=== PATIENT | female | born 2000 | race Hispanic/Latino ===

== ENCOUNTER → 2023-03-22 10:40 | Outpatient (REF) | payer OTHER, SELFPAY | LOC: HWRAD 10:40 | PROVIDERS: ATTENDING PHYSICIAN Nurse Practitioner Acute Care | DX: J84.10 Pulmonary fibrosis, unspecified (principal) | CPT/HCPCS: 71250 ==

== ENCOUNTER 2023-04-20 23:55 | Emergency (ER) | payer MEDICAID, SELFPAY ==
[2023-04-21 00:14] VITALS: BP 100/55
--- NOTE | 2023-04-21 01:23 | ED.GENMED ---
History of Present Illness
General
Chief Complaint: Problems
Source: patient
Exam Limitations: none
Time Seen by Provider: 04/21/23 01:09
Travel History
Have you had any contact with someone who has COVID-19?: No
Do you have any symptoms of coronavirus? Fever > 100 degrees, chills, cough, shortness of breath, sore throat, loss of taste or smell, muscle aches, or headache?: No
History of Present Illness
History of Present Illness:
See MDM
Past History
Past History
ED Past Medical History: None; Negative Asthma, HTN, Hypercholesterolemia or NIDDM
ED Past Surgical History: Cholecystectomy
Social History
Tobacco: Non-smoker
Alcohol: None
Personal: Single
Living: with family
Phy Exam
Physical Exam
Physical Exam:
See MDM
Course
Orders/Labs/Results
Orders:
Orders
04/21/23 01:22
US W Transvaginal Urgent
Reason For Exam: , abd pain
04/21/23 01:31
Complete Blood Count/With Diff Urgent
Comprehensive Metabolic Panel Urgent
HCG, Beta Quantitative [Beta HCG Quantitative] Urgent
Is this a screen?: No
Abnormal Lab Results
04/21/23
01:31
WBC 12.4 H 10^3/uL
(4.8-10.8)
RBC 3.90 L 10^6/uL
(4.20-5.40)
Hct 34.5 L %
(37.0-47.0)
MPV 10.8 H fL
(7.4-10.4)
Absolute Neuts (auto) 7.7 H 10^3/uL
(1.4-6.5)
Absolute Monos (auto) 1.5 H 10^3/uL
(0.1-0.6)
Monocytes % 12.2 H %
(1.7-9.3)
Creatinine 0.5 L mg/dL
(0.6-1.0)
04/21/23 01:31
04/21/23 01:31
Vital Signs
Initial and Last Documented VS:
Initial Vital Signs
Temp Pulse Resp BP Pulse Ox
98.5 F 71 16 100/55 100
04/21/23 00:14 04/21/23 00:14 04/21/23 00:14 04/21/23 00:14 04/21/23 00:14
Last Documented Vital Signs
Temp Pulse Resp BP Pulse Ox
98.5 F 74 16 115/62 99
04/21/23 00:14 04/21/23 02:43 04/21/23 02:43 04/21/23 02:43 04/21/23 02:43
Information
Weeks gestation: Weeks: ()
Location: Location: ([facility])
MDM/Problems Addressed
Differential Diagnosis Includes:
HPI and MDM Narrative:
22-year-old female presenting with abdominal cramping. Patient believes she is 8 weeks by last menstrual period. She has her first ultrasound appointment on Sunday. She denies any vaginal bleeding. She is G3, P1 and has had a prior
miscarriage similar to this presentation. However, she has not noticed any bleeding this time
Prior records indicate that her blood type is A+
Physical exam
General: Well appearing and non-toxic
HEENT: protecting airway
Neck: appears supple
CV: No evidence of cyanosis
Resp: No accessory muscle use
Abd: Non-distended. Soft and nontender
Extremities: No deformities
Neuro: alert
Psych: Normal affect
Skin: Intact
Problems Addressed including Acute and Chronic Conditions affecting care:
1. abdominal pain
Acuity: acute
Prognosis: stable
Details: Bedside ultrasound shows possible gestational sac measuring 5 weeks 4 days. Will obtain beta quant and get official ultrasound
Updates
Differential Diagnosis (but not limited to): Ectopic , early miscarriage
Testing considered: Urinalysis
Drug therapy (if applicable): OTC meds, please see d/c instruction regarding Rx drugs
Amount and/or Complexity of Data Reviewed
Clinical info obtained from: Patient
External data reviewed: N/A
Labs I independently reviewed (but not limited to): Beta hCG 4782
Radiology:
Pulse Ox: not hypoxic
EKG independently reviewed: N/A
Animal Keeper: N/A
Critical Care: N/A
Risk of Complication:
Social Determinants of health: Good social support
Discussed with other providers: N/A
Escalation of Care includes Admit/Obs: After being observed in the Emergency Department, pt stable for discharge.
Occasional wrong word or 'sound a like' substitutions may have occurred due to the inherent limitations of voice recognition software. Read the chart carefully and recognize, using context, where substitutions have occurred.
*Critical Care Note
Total Time (30-74mins, 75-104mins- exclusive of procedures): Not Applicable
ED Attending Note
-
Portions of this chart may have been created with voice recognition software.� Occasional wrong word or��sound alike� substitutions may have occurred due to the inherent limitations of voice recognition software.
Discharge Plan
Departure
Patient Disposition: Home (Routine Discharge)
Date of Disposition: 04/21/23
Time of Disposition: 04:06
Patient with high blood pressure during this ER visit?: No
Discharge Problem:
Generalized abdominal pain during
Instructions: symptoms
Prescriptions:
No Action
acetaminophen [acetaminophen] 325 mg tablet
650 mg PO Q6HPRN PRN (Reason: mild pain) Qty: 14 0RF
ibuprofen 600 mg tablet
600 mg PO Q6H PRN (Reason: pain) Qty: 14 0RF
oxycodone 5 mg tablet
5 mg PO Q6HPRN PRN (Reason: breakthrough/severe pain) Qty: 8 0RF
Referrals:
NONE,* [Family Provider] -
Activity Restrictions/Additional Instructions:
Please return for any worsening symptoms.
You may return at any time if you have further concerns.
Please keep your OB appointment on Sunday.
Thank you for choosing [facility].
Interventions
Interventions:
*Risk Screen - Suicide Last Done: 04/21/23 01:24
*Neglect/Abuse Screening Last Done: 04/21/23 01:24
*Nursing Disposition Last Done: 04/21/23 04:13
ED-Female Genitourinary Assessment Last Done: 04/21/23 01:24
Discharge Date and Time
Discharge Date/Time: 04/21/23 04:14
[2023-04-21 01:31] VITALS: BP 122/66
[2023-04-21 01:41] LABS: % Basophils 0.5 % (0-2); % Eosinophils 1.2 % (0-6); % Immature Granulocytes 0.2 % (0-0.5); % Lymphocytes 24.1 % (20.5-51.1); % Monocytes 12.2 % (1.7-9.3); % Neutrophils 61.8 % (42.2-75.2); Absolute Basophils 0.1 10^3/uL (0-0.2); Absolute Eosinophils 0.2 10^3/uL (0-0.7); Absolute Monocytes 1.5 10^3/uL (0.1-0.6); Absolute Neutrophils 7.7 10^3/uL (1.4-6.5); Hematocrit 34.5 % (37.0-47.0); Mean Corp Hgb Conc. 34.8 g/dL (33.0-37.0); Mean Corpuscular Hgb 30.8 pg (27.0-31.0); Mean Corpuscular Volume 88.5 fL (81.0-99.0); Mean Platelet Volume 10.8 fL (7.4-10.4); Nucleated Red Blood Cells % 0 %; Platelet Count 205 10^3/uL (130-400); Red Cell Dist. Width 12.9 % (11.5-14.5); White Blood Cell Count 12.4 10^3/uL (4.8-10.8)
[2023-04-21 02:01] LABS: ALT (SGPT) 22 U/L (0-35); AST (SGOT) 23 U/L (14-36); Alkaline Phosphatase 65 U/L (38-126); Blood Urea Nitrogen 9 mg/dl (7-17); Calcium 8.8 mg/dl (8.4-10.2); Carbon Dioxide 23 mmol/L (22-30); Chloride 106 mmol/L (98-107); Glucose 96 mg/dl (70-99); Sodium 135 mmol/L (135-145); Total Bilirubin 0.4 mg/dl (0.2-1.3); Total Protein 7.2 g/dl (6.3-8.2); eGFR > 60.00
[2023-04-21 02:43] VITALS: BP 115/62
== END 2023-04-21 04:14 | disposition home or self-care (01) ==
LOC: EMR 23:55
PROVIDERS: EMERGENCY PHYSICIAN Student in an Organized Health Care Education/Training Program
DX: O26.891 Other specified pregnancy related conditions, first trimester (principal); R10.9 Unspecified abdominal pain; Z3A.01 Less than 8 weeks gestation of pregnancy
CPT/HCPCS: 99284; 76801; 76817; 80053; 84702; 85025